=== PATIENT | male | born 1980 | race Caucasian/White ===

== ENCOUNTER 2017-06-06 18:42 | Emergency (ER) | payer BC ==
[~2017-06-06] VITALS: Ht 188 cm; Wt 78.9 kg
[~2017-06-06 18:42] MED LIST: Levsin PO; Phenergan PO
[2017-06-06] MEDS ORDERED: MOTRIN600 MG PO (21:19)
[2017-06-06 21:31] VITALS: BP 134/83
== END 2017-06-06 21:28 | disposition home or self-care (01) ==
LOC: EME 18:42
DX: S01.412A Laceration without foreign body of left cheek and temporomandibular area, initial encounter (principal); W21.03XA Struck by baseball, initial encounter; Y93.64 Activity, baseball; Y92.320 Baseball field as the place of occurrence of the external cause; F17.200 Nicotine dependence, unspecified, uncomplicated; Z23 Encounter for immunization
CPT/HCPCS: 70486; 99281; 99283